=== PATIENT | female | born 2000 | race American Indian/Alaskan Native ===

== ENCOUNTER 2021-02-18 07:12 | Emergency (ER) | payer MEDICAID ==
--- NOTE | 2021-02-18 09:04 | Emergency Department Report ---
ED ENT HPI - General Chief complaint: Sore Throat Stated complaint: SORE THROAT,HEADACHE,EYE PAIN Time Seen by Provider: 02/18/21 09:02 Source: patient Mode of arrival: Ambulatory Limitations: No Limitations - History of Present Illness Initial comments: 20-year-old -[place] female resents to the emergency room complaining of sore throat, eyes hurt nasal congestion and headache. Patient is not vaccinated. Denies any nausea no vomiting no fever no chills no diarrhea or abdominal pain. Patient is taking nothing for her symptoms. Patient denies any past medical history. MD complaint: sore throat Onset/Timin -: days(s) Location: throat Severity scale (0 -10): 6 Quality: aching, sharp Consistency: intermittent Associated Symptoms: sore throat, other (Headache, eyes hurt). denies: fever, cough, gum swelling, toothache - Related Data Home Medications Medication Instructions Recorded Confirmed Last Taken No Known Home Medications [No 02/18/21 02/18/21 Unknown Reported Home Medications] Allergies Allergy/AdvReac Type Severity Reaction Status Date / Time No Known Allergies Allergy Verified 02/18/21 07:23 ED Dental HPI - General Chief complaint: Sore Throat Stated complaint: SORE THROAT,HEADACHE,EYE PAIN Time Seen by Provider: 02/18/21 09:02 Source: patient Mode of arrival: Ambulatory Limitations: No Limitations - Related Data Home Medications Medication Instructions Recorded Confirmed Last Taken No Known Home Medications [No 02/18/21 02/18/21 Unknown Reported Home Medications] Allergies Allergy/AdvReac Type Severity Reaction Status Date / Time No Known Allergies Allergy Verified 02/18/21 07:23 ED Review of Systems ROS: Stated complaint: SORE THROAT,HEADACHE,EYE PAIN Other details as noted in HPI Comment: All other systems reviewed and negative ED Past Medical Hx - Past Medical History Previous Medical History?: No - Surgical History Past Surgical History?: No - Medications Home Medications: Home Medications Medication Instructions Recorded Confirmed Last Taken Type No Known Home Medications [No 02/18/21 02/18/21 Unknown History Reported Home Medications] ED Physical Exam - General Limitations: No Limitations General appearance: alert, in no apparent distress - Head Head exam: Present: atraumatic, normocephalic - Eye Eye exam: Present: normal appearance - ENT ENT exam: Present: mucous membranes moist - Neck Neck exam: Present: normal inspection - Respiratory Respiratory exam: Present: normal lung sounds bilaterally. Absent: respiratory distress - Cardiovascular Cardiovascular Exam: Present: regular rate, normal rhythm. Absent: systolic murmur, diastolic murmur, rubs, gallop - GI/Abdominal GI/Abdominal exam: Present: soft, normal bowel sounds - Extremities Exam Extremities exam: Present: normal inspection - Back Exam Back exam: Present: normal inspection - Neurological Exam Neurological exam: Present: alert, oriented X3, normal gait - Expanded Neurological Exam Expanded Cranial nerves: EOM's Intact: Normal, Gag Reflex: Normal, Tongue Deviation: Normal, Nystagmus: Normal, Facial Sensation: Normal, Facial Palsy with Forehead Movement: Normal, Facial Palsy without Forehead Movement: Normal Cerebellar function: Finger to Nose: Normal, Heel to [place]: Normal, Romberg: Normal Upper motor neuron: Andre Neglect: Normal, Pronator Drift: Normal, Babinski Sign: Normal, Sensory Extinction: Normal Sensory exam: Upper Extremity Light Touch: Normal, Upper Extremity Pin Prick: Normal, Upper Extremity Temperature: Normal, UE 2 Point Discrimination: Normal, Lower Extremity Light Touch: Normal, Lower Extremity Pin Prick: Normal, Lower Extremity Temperature: Normal, LE 2 Point Discrimination: Normal Motor strength exam: RUE: 4, LUE: 4, RLE: 4, LLE: 4 - Psychiatric Psychiatric exam: Present: normal affect, normal mood - Skin Skin exam: Present: warm, dry, intact, normal color. Absent: rash ED Course Vital Signs 02/18/21 07:25 Temperature 98.4 F Pulse Rate 80 Respiratory 16 Rate Blood Pressure 118/74 [Left] O2 Sat by Pulse 100 Oximetry ED Medical Decision Making - Medical Decision Making 20-year-old -[place] female resents to the emergency room complaining of sore throat, eyes hurt nasal congestion and headache. Patient is not vaccinated. Denies any nausea no vomiting no fever no chills no diarrhea or abdominal pain. Patient is taking nothing for her symptoms. Patient denies any past medical history. Rapid strep has been ordered. Critical care attestation.: If time is entered above; I have spent that time in minutes in the direct care of this critically ill patient, excluding procedure time. ED Disposition Clinical Impression: Sore throat (viral) Disposition: HOME / SELF CARE / HOMELESS Is pt being admited?: No Does the pt Need Aspirin: No Condition: Stable Instructions: Sore Throat, [id number] Additional Instructions: Your strep test was negative I recommend ibuprofen or Tylenol for pain. Warm salt gargles. Follow-up with your primary care provider if any further concerns Referrals: PRIMARY CARE,MD [Primary Care Provider] - 3-5 Days Forms: Work/School Release Form(ED) Time of Disposition: 10:52
[2021-02-18 11:25] VITALS: BP 130/80
== END 2021-02-18 11:21 | disposition home or self-care (01) ==
LOC: ED 07:12
DX: J02.9 Acute pharyngitis, unspecified (principal)
CPT/HCPCS: 87116; 87430; 99283

== ENCOUNTER 2021-09-10 12:30 | Inpatient (IN) | payer MEDICAID ==
[2021-09-10] MEDS ORDERED: LACTATED RINGERS 500 ML IV ONE (12:49)
[2021-09-10 15:25] LABS: Bilirubin,Urine NEG (Negative); Blood,Urine SM (Negative); Color,Urine Yellow (Yellow); Mucus,Urine FEW /HPF; Protein,Urine <15 mg/dL mg/dL (Negative); Urobilinogen,Urine < 2.0 mg/dL (<2.0)
[2021-09-10] MEDS ORDERED: LACTATED RINGERS 1,000 ML ONE (15:54)
[2021-09-10] MEDS ORDERED: ACETAMINOPHEN 325 MG TAB PO PRN (17:25)
[2021-09-10] MEDS ORDERED: MINERAL OIL 30 ML ORAL LIQD PO PRN (17:25)
[2021-09-10] MEDS ORDERED: PROMETHAZINE 25 MG TAB PO PRN (17:25)
[2021-09-10] MEDS ORDERED: ONDANSETRON 4 MG/2 ML INJ IV PRN (17:25)
[2021-09-10] MEDS ORDERED: LACTATED RINGERS 1,000 ML IV SCH (17:30)
--- NOTE | 2021-09-10 17:37 | History and Physical Report ---
History of Present Illness Date of examination: 09/10/21 Chief complaint: left lower abd pain History of present illness: at 24.2wks by LMP per pt report. Pt c/o left side pain that started since 4am that is constant and sharp on the left side. It begun after having a BM. Pt states that she was seen by Urgent care earlier today and told she has kidney stones, hence she came to [facility]. Pt admits to movement, denies ctx, denies LOF or vag bleed or headache or N/V/F/C. care at [facility]. Past History Past Medical History: no pertinent history Past Surgical History: no surgical history Social history: no significant social history - Obstetrical History Expected Date of Delivery: 12/28/21 Actual Gestation: 24 Week(s) 4 Day(s) : 1 Number of Living Children: 0 Medications and Allergies Allergies Allergy/AdvReac Type Severity Reaction Status Date / Time No Known Allergies Allergy Verified 09/10/21 12:55 Home Medications Medication Instructions Recorded Confirmed Last Taken Type No Known Home Medications [No 02/18/21 02/18/21 Unknown History Reported Home Medications] Active Meds: Active Medications Acetaminophen (Acetaminophen 325 Mg Tab) 650 mg PO Q4H PRN PRN Reason: Pain, Mild (1-3) Lactated Ringer's (Lactated Ringers) 1,000 mls @ 150 mls/hr IV DIRECT JOHNNIE Ceftriaxone Sodium (Rocephin/Ns 1 Gm/50 Ml) 1 gm in 50 mls @ 100 mls/hr IV Q24H JOHNNIE; Protocol Mineral Oil (Mineral Oil 30 Ml Oral Liqd) 30 ml PO QHS PRN PRN Reason: Constipation Nalbuphine HCl (Nalbuphine 10 Mg/1 Ml Inj) 10 mg IV Q3H PRN PRN Reason: Pain, Moderate (4-6) Ondansetron HCl (Ondansetron 4 Mg/2 Ml Inj) 4 mg IV Q8H PRN PRN Reason: Nausea And Vomiting Promethazine HCl (Promethazine 25 Mg Tab) 25 mg PO Q6H PRN PRN Reason: Nausea And Vomiting Review of Systems All systems: negative (left side pain) - Physical Exam Breasts: Positive: deferred Cardiovascular: Regular rate Lungs: Positive: Normal air movement Abdomen: Positive: soft Genitourinary (Female): Positive: normal external genitalia Vulva: both: normal Vagina: Positive: normal moisture Uterus: Positive: enlarged (non-tender gravid at 22cm measurement) Extremities: Positive: other (left CVAT noted) - Obstetrical FHR: category 1 Uterine Contraction Monitor Mode: External Cervical Dilatation: 0 Cervical Effacement Percentage: 0 station: -4 Uterine Contraction Pattern: Absent Results Result Diagrams: 09/10/21 20:14 09/10/21 20:14 All other labs normal. Assessment and Plan with hydronephrosis and kidney stones symptomatic; Left CVAT on exam 1. Admit and give IVF hydration and ceftriaxone abx 2. Will send urine culture 3. Consult urology for possible stent if needed 4. IV nubain prn pain 5. Colace bid for constipation 6. Routine care, request records and u/s for Anatomy and dates plan of care discussed with pt
--- NOTE | 2021-09-10 17:39 | Ultrasound Report ---
ULTRASOUND RENAL INDICATION / CLINICAL INFORMATION: at 24.2wks. Left flank pain. COMPARISON: None available. FINDINGS: RIGHT KIDNEY: Length = 2.7 cm. - Echogenicity: Normal. - Cortical Thickness: Normal. - Hydronephrosis: Moderate. - Cyst / Mass: None. - Stones: 4 mm stone at the midportion. LEFT KIDNEY: Length = 1.1 cm. - Echogenicity: Normal. - Cortical Thickness: Normal. - Hydronephrosis: Moderate. - Cyst / Mass: None. - Stones: 3 mm stone at the midportion URINARY BLADDER: No significant abnormality. FREE FLUID: None. ADDITIONAL FINDINGS: None. IMPRESSION: 1. Bilateral moderate hydronephrosis without obstructing ureteral stone identified. There are bilater al renal stones. The bilateral hydronephrosis may be due to gravid uterus versus distal obstructing s tones. Recommend clinical correlation. Signer Name: Louie Fragoso MD Signed: 09/10/2021 5:35 PM Workstation Name: [id number]
[2021-09-10] MEDS: NalbUPHINE 10 MG/1 ML INJ IV PRN (18:37)
[2021-09-10] MEDS: SODIUM CHLORIDE 0.9% 1000 ML 1,000 ML IV SCH (19:56)
[2021-09-10] MEDS: cefTRIAXone/NS 1 GM/50 ML 1 GM/50 ML BAG IV SCH (20:30)
[2021-09-10 21:17] LABS: Hematocrit 32.3 % (30.3-42.9); Hemoglobin 10.6 gm/dl (10.1-14.3); Mean Corpuscular HGB Conc 33 % (30-34); Mean Corpuscular Volume 96 fl (79-97); Platelet Count 193 K/mm3 (140-440); Red Blood Count 3.38 M/mm3 (3.65-5.03); Red Cell Distribution Width 14.8 % (13.2-15.2)
[2021-09-10 21:38] LABS: Alanine Aminotransferase 19 units/L (7-56); Albumin 3.8 g/dL (3.9-5); BUN/Creatinine Ratio 9; Blood Urea Nitrogen 7 mg/dL (7-17); Calcium 9.4 mg/dL (8.4-10.2); Hemolysis Index 3
[2021-09-11] MEDS: NalbUPHINE 10 MG/1 ML INJ IV PRN ×2 (03:32→07:39)
[2021-09-11] MEDS: SODIUM CHLORIDE 0.9% 1000 ML 1,000 ML IV SCH ×2 (03:33→09:31)
[2021-09-11] MEDS: ACETAMINOPHEN W/CODEINE 300-30 MG TAB PO PRN ×3 (10:51→20:20)
--- NOTE | 2021-09-11 10:57 | Progress Note ---
Assessment and Plan A IUP@ 24 3/7 weeks Nephrolithiasis -Bilateral non -obstructing Poor pain control OB US pending P Will switch to po pain meds OB US If pain control on po meds will d/c home F/u with urology as an outpatient in 1 week Return to OB office in 1 week. Subjective - Subjective Date of service: 09/11/21 Principal diagnosis: Nephrolithiasis Patient reports: movement normal, other (Flank Pain. Worse with urination. Poor pain control. Pain relieved x 1hour with pain meds. Pain 12/10 ) Objective - Vital Signs Vital Signs: Vital Signs - 12hr 09/10/21 09/10/21 09/10/21 22:51 22:56 23:01 Temperature Pulse Rate 87 88 85 Respiratory Rate Blood Pressure Blood Pressure [Left] O2 Sat by Pulse 97 97 97 Oximetry O2 Sat by Pulse Oximetry [ Anterior Bilateral Throughout] 09/10/21 09/10/21 09/10/21 23:06 23:11 23:16 Temperature Pulse Rate 83 86 83 Respiratory Rate Blood Pressure Blood Pressure [Left] O2 Sat by Pulse 97 97 97 Oximetry O2 Sat by Pulse Oximetry [ Anterior Bilateral Throughout] 09/10/21 09/10/21 09/10/21 23:21 23:26 23:31 Temperature Pulse Rate 86 81 84 Respiratory Rate Blood Pressure Blood Pressure [Left] O2 Sat by Pulse 97 97 97 Oximetry O2 Sat by Pulse Oximetry [ Anterior Bilateral Throughout] 09/10/21 09/10/21 09/10/21 23:36 23:41 23:46 Temperature Pulse Rate 82 87 88 Respiratory Rate Blood Pressure Blood Pressure [Left] O2 Sat by Pulse 97 97 97 Oximetry O2 Sat by Pulse Oximetry [ Anterior Bilateral Throughout] 09/10/21 09/10/21 09/11/21 23:51 23:56 00:01 Temperature Pulse Rate 92 H 79 79 Respiratory Rate Blood Pressure Blood Pressure [Left] O2 Sat by Pulse 98 97 98 Oximetry O2 Sat by Pulse Oximetry [ Anterior Bilateral Throughout] 09/11/21 09/11/21 09/11/21 00:06 00:11 00:16 Temperature Pulse Rate 96 H 90 91 H Respiratory Rate Blood Pressure Blood Pressure [Left] O2 Sat by Pulse 98 97 97 Oximetry O2 Sat by Pulse Oximetry [ Anterior Bilateral Throughout] 09/11/21 09/11/21 09/11/21 00:21 00:26 03:31 Temperature Pulse Rate 89 87 88 Respiratory Rate Blood Pressure 107/57 Blood Pressure [Left] O2 Sat by Pulse 98 97 Oximetry O2 Sat by Pulse Oximetry [ Anterior Bilateral Throughout] 09/11/21 09/11/21 09/11/21 03:32 03:34 04:32 Temperature 97.9 F Pulse Rate Respiratory 18 18 Rate Blood Pressure Blood Pressure [Left] O2 Sat by Pulse Oximetry O2 Sat by Pulse Oximetry [ Anterior Bilateral Throughout] 09/11/21 09/11/21 09/11/21 07:01 07:04 07:06 Temperature 98.2 F Pulse Rate 86 84 88 Respiratory 12 Rate Blood Pressure 104/60 Blood Pressure 104/60 [Left] O2 Sat by Pulse 98 100 99 Oximetry O2 Sat by Pulse 99 Oximetry [ Anterior Bilateral Throughout] 09/11/21 09/11/21 09/11/21 07:11 07:16 07:21 Temperature Pulse Rate 92 H 93 H 79 Respiratory Rate Blood Pressure Blood Pressure [Left] O2 Sat by Pulse 99 98 98 Oximetry O2 Sat by Pulse Oximetry [ Anterior Bilateral Throughout] 09/11/21 09/11/21 09/11/21 07:26 07:31 07:36 Temperature Pulse Rate 86 83 86 Respiratory Rate Blood Pressure Blood Pressure [Left] O2 Sat by Pulse 97 99 100 Oximetry O2 Sat by Pulse Oximetry [ Anterior Bilateral Throughout] 09/11/21 09/11/21 09/11/21 07:39 07:41 07:46 Temperature Pulse Rate 92 H 93 H Respiratory 12 Rate Blood Pressure Blood Pressure [Left] O2 Sat by Pulse 98 97 Oximetry O2 Sat by Pulse Oximetry [ Anterior Bilateral Throughout] 09/11/21 09/11/21 09/11/21 07:51 07:56 08:00 Temperature Pulse Rate 84 88 89 Respiratory Rate Blood Pressure Blood Pressure [Left] O2 Sat by Pulse 95 95 94 Oximetry O2 Sat by Pulse Oximetry [ Anterior Bilateral Throughout] 09/11/21 09/11/21 09/11/21 08:01 08:06 08:11 Temperature Pulse Rate 91 H 92 H 90 Respiratory Rate Blood Pressure Blood Pressure [Left] O2 Sat by Pulse 97 96 95 Oximetry O2 Sat by Pulse Oximetry [ Anterior Bilateral Throughout] 09/11/21 09/11/21 09/11/21 08:26 08:31 08:36 Temperature Pulse Rate 92 H 89 90 Respiratory Rate Blood Pressure Blood Pressure [Left] O2 Sat by Pulse 98 95 95 Oximetry O2 Sat by Pulse Oximetry [ Anterior Bilateral Throughout] 09/11/21 09/11/21 09/11/21 08:41 08:46 08:51 Temperature Pulse Rate 88 85 87 Respiratory Rate Blood Pressure Blood Pressure [Left] O2 Sat by Pulse 95 95 96 Oximetry O2 Sat by Pulse Oximetry [ Anterior Bilateral Throughout] 09/11/21 09/11/21 09/11/21 08:56 09:01 09:06 Temperature Pulse Rate 93 H 85 76 Respiratory Rate Blood Pressure Blood Pressure [Left] O2 Sat by Pulse 95 95 97 Oximetry O2 Sat by Pulse Oximetry [ Anterior Bilateral Throughout] 09/11/21 09/11/21 09/11/21 09:11 09:16 09:21 Temperature Pulse Rate 110 H 79 82 Respiratory Rate Blood Pressure Blood Pressure [Left] O2 Sat by Pulse 97 97 97 Oximetry O2 Sat by Pulse Oximetry [ Anterior Bilateral Throughout] 09/11/21 09/11/21 09/11/21 09:26 09:31 09:36 Temperature Pulse Rate 86 96 H 98 H Respiratory Rate Blood Pressure Blood Pressure [Left] O2 Sat by Pulse 96 98 100 Oximetry O2 Sat by Pulse Oximetry [ Anterior Bilateral Throughout] 09/11/21 09/11/21 09/11/21 09:41 09:46 09:51 Temperature Pulse Rate 96 H 77 83 Respiratory Rate Blood Pressure Blood Pressure [Left] O2 Sat by Pulse 98 97 99 Oximetry O2 Sat by Pulse Oximetry [ Anterior Bilateral Throughout] 09/11/21 09/11/21 09/11/21 09:56 10:01 10:06 Temperature Pulse Rate 88 90 86 Respiratory Rate Blood Pressure Blood Pressure [Left] O2 Sat by Pulse 98 99 100 Oximetry O2 Sat by Pulse Oximetry [ Anterior Bilateral Throughout] 09/11/21 09/11/21 10:11 10:16 Temperature Pulse Rate 89 87 Respiratory Rate Blood Pressure Blood Pressure [Left] O2 Sat by Pulse 100 99 Oximetry O2 Sat by Pulse Oximetry [ Anterior Bilateral Throughout] - Exam Breasts: deferred Abdomen: Present: normal appearance, soft, other (No CVA tenderness ) Uterus: Present: normal, fundal height above umbilicus FHR: auscultation normal (135) Uterine Contraction Monitor Mode: External - Labs Labs: Abnormal Labs 09/10/21 09/10/21 20:14 20:14 WBC 13.1 H RBC 3.38 L Albumin 3.8 L Laboratory Results - last 24 hr 09/10/21 09/10/21 09/10/21 15:06 20:00 20:14 WBC 13.1 H RBC 3.38 L Hgb 10.6 Hct 32.3 MCV 96 MCH 32 MCHC 33 RDW 14.8 Plt Count 193 Sodium Potassium Chloride Carbon Dioxide Anion Gap BUN Creatinine Estimated GFR BUN/Creatinine Ratio Glucose Calcium Total Bilirubin AST ALT Alkaline Phosphatase Total Protein Albumin Albumin/Globulin Ratio Urine Color Yellow Urine Turbidity Clear Urine pH 7.0 Ur Specific [place] 1.010 Urine Protein <15 mg/dl Urine Glucose (UA) Neg Urine Ketones Neg Urine Blood Sm Urine Nitrite Neg Urine Bilirubin Neg Urine Urobilinogen < 2.0 Ur Leukocyte Esterase Neg Urine WBC (Auto) 3.0 Urine RBC (Auto) 5.0 U Epithel Cells (Auto) 5.0 Urine Mucus Few SARS-CoV-2 (PCR) Blood Type O POSITIVE Antibody Screen Negative 09/10/21 09/11/21 20:14 09:11 WBC RBC Hgb Hct MCV MCH MCHC RDW Plt Count Sodium 137 Potassium 3.7 Chloride 101.9 Carbon Dioxide 22 Anion Gap 17 BUN 7 Creatinine 0.8 Estimated GFR > 60 BUN/Creatinine Ratio 9 Glucose 68 Calcium 9.4 Total Bilirubin 0.50 AST 27 ALT 19 Alkaline Phosphatase 76 Total Protein 6.3 Albumin 3.8 L Albumin/Globulin Ratio 1.5 Urine Color Urine Turbidity Urine pH Ur Specific [place] Urine Protein Urine Glucose (UA) Urine Ketones Urine Blood Urine Nitrite Urine Bilirubin Urine Urobilinogen Ur Leukocyte Esterase Urine WBC (Auto) Urine RBC (Auto) U Epithel Cells (Auto) Urine Mucus SARS-CoV-2 (PCR) Negative Blood Type Antibody Screen
[2021-09-11] MEDS ORDERED: oxyCODONE /ACETAMINOPHEN 5-325MG TAB PO PRN ×2 (11:20→17:31)
--- NOTE | 2021-09-11 13:29 | Ultrasound Report ---
ULTRASOUND OBSTETRIC LIMITED INDICATION / CLINICAL INFORMATION: Placenta Evaluation. Clinical Gestational Age (GA) in weeks, days: 24 weeks 4 days TECHNIQUE: Transabdominal. COMPARISON: None available. FINDINGS: HEART RATE (beats per minute): 145 BPM PLACENTA: Posterior/ left lateral grade 1. No evidence of abruption. There is a placental mccarthy measur ing 3.3 cm. PRESENTATION: Cephalic. ADDITIONAL FINDINGS: None. IMPRESSION: 1. No evidence of placental abruption. 2. 3.3 cm placental mccarthy. Scribed by: Samira Wu RDMS, RVT, GAMALIEL Scribed: 09/11/2021 12:19 PM I have reviewed the images, agree with this report, and edited this report as needed. Signer Name: Julian Chirinos MD Signed: 09/11/2021 1:24 PM Workstation Name: [id number]
--- NOTE | 2021-09-11 15:36 | Progress Note ---
Assessment and Plan A Poor pain control Previously refuse percocet. P D/w pt. percocet and effects on fetus. pt. agrees to use percocet. Switch Tylenol#3 to Percocet Subjective - Subjective Date of service: 09/11/21 Principal diagnosis: Nephrolithiasis Patient reports: new complaints (Pt. with poor pain control using tylenol #3. ), movement normal, other (Flank Pain. Worse with urination. Pain relieve with pain meds x 1 hour. ) Objective - Vital Signs Vital Signs: Vital Signs - 12hr 09/11/21 09/11/21 09/11/21 03:31 03:32 03:34 Temperature 97.9 F Pulse Rate 88 Respiratory 18 Rate Blood Pressure 107/57 Blood Pressure [Left] O2 Sat by Pulse Oximetry O2 Sat by Pulse Oximetry [ Anterior Bilateral Throughout] 09/11/21 09/11/21 09/11/21 04:32 07:01 07:04 Temperature 98.2 F Pulse Rate 86 84 Respiratory 18 12 Rate Blood Pressure 104/60 Blood Pressure 104/60 [Left] O2 Sat by Pulse 98 100 Oximetry O2 Sat by Pulse 99 Oximetry [ Anterior Bilateral Throughout] 09/11/21 09/11/21 09/11/21 07:06 07:11 07:16 Temperature Pulse Rate 88 92 H 93 H Respiratory Rate Blood Pressure Blood Pressure [Left] O2 Sat by Pulse 99 99 98 Oximetry O2 Sat by Pulse Oximetry [ Anterior Bilateral Throughout] 09/11/21 09/11/21 09/11/21 07:21 07:26 07:31 Temperature Pulse Rate 79 86 83 Respiratory Rate Blood Pressure Blood Pressure [Left] O2 Sat by Pulse 98 97 99 Oximetry O2 Sat by Pulse Oximetry [ Anterior Bilateral Throughout] 09/11/21 09/11/21 09/11/21 07:36 07:39 07:41 Temperature Pulse Rate 86 92 H Respiratory 12 Rate Blood Pressure Blood Pressure [Left] O2 Sat by Pulse 100 98 Oximetry O2 Sat by Pulse Oximetry [ Anterior Bilateral Throughout] 09/11/21 09/11/21 09/11/21 07:46 07:51 07:56 Temperature Pulse Rate 93 H 84 88 Respiratory Rate Blood Pressure Blood Pressure [Left] O2 Sat by Pulse 97 95 95 Oximetry O2 Sat by Pulse Oximetry [ Anterior Bilateral Throughout] 09/11/21 09/11/21 09/11/21 08:00 08:01 08:06 Temperature Pulse Rate 89 91 H 92 H Respiratory Rate Blood Pressure Blood Pressure [Left] O2 Sat by Pulse 94 97 96 Oximetry O2 Sat by Pulse Oximetry [ Anterior Bilateral Throughout] 09/11/21 09/11/21 09/11/21 08:11 08:26 08:31 Temperature Pulse Rate 90 92 H 89 Respiratory Rate Blood Pressure Blood Pressure [Left] O2 Sat by Pulse 95 98 95 Oximetry O2 Sat by Pulse Oximetry [ Anterior Bilateral Throughout] 09/11/21 09/11/21 09/11/21 08:36 08:41 08:46 Temperature Pulse Rate 90 88 85 Respiratory Rate Blood Pressure Blood Pressure [Left] O2 Sat by Pulse 95 95 95 Oximetry O2 Sat by Pulse Oximetry [ Anterior Bilateral Throughout] 09/11/21 09/11/21 09/11/21 08:51 08:56 09:01 Temperature Pulse Rate 87 93 H 85 Respiratory Rate Blood Pressure Blood Pressure [Left] O2 Sat by Pulse 96 95 95 Oximetry O2 Sat by Pulse Oximetry [ Anterior Bilateral Throughout] 09/11/21 09/11/21 09/11/21 09:06 09:11 09:16 Temperature Pulse Rate 76 110 H 79 Respiratory Rate Blood Pressure Blood Pressure [Left] O2 Sat by Pulse 97 97 97 Oximetry O2 Sat by Pulse Oximetry [ Anterior Bilateral Throughout] 09/11/21 09/11/21 09/11/21 09:21 09:26 09:31 Temperature Pulse Rate 82 86 96 H Respiratory Rate Blood Pressure Blood Pressure [Left] O2 Sat by Pulse 97 96 98 Oximetry O2 Sat by Pulse Oximetry [ Anterior Bilateral Throughout] 09/11/21 09/11/21 09/11/21 09:36 09:41 09:46 Temperature Pulse Rate 98 H 96 H 77 Respiratory Rate Blood Pressure Blood Pressure [Left] O2 Sat by Pulse 100 98 97 Oximetry O2 Sat by Pulse Oximetry [ Anterior Bilateral Throughout] 09/11/21 09/11/21 09/11/21 09:51 09:56 10:01 Temperature Pulse Rate 83 88 90 Respiratory Rate Blood Pressure Blood Pressure [Left] O2 Sat by Pulse 99 98 99 Oximetry O2 Sat by Pulse Oximetry [ Anterior Bilateral Throughout] 09/11/21 09/11/21 09/11/21 10:06 10:11 10:16 Temperature Pulse Rate 86 89 87 Respiratory Rate Blood Pressure Blood Pressure [Left] O2 Sat by Pulse 100 100 99 Oximetry O2 Sat by Pulse Oximetry [ Anterior Bilateral Throughout] 09/11/21 09/11/21 09/11/21 10:51 10:53 11:02 Temperature 97.6 F Pulse Rate 90 41 L Respiratory 14 Rate Blood Pressure 109/55 Blood Pressure [Left] O2 Sat by Pulse 66 L Oximetry O2 Sat by Pulse Oximetry [ Anterior Bilateral Throughout] 09/11/21 09/11/21 09/11/21 11:07 14:49 14:52 Temperature 97.6 F Pulse Rate 66 125 H Respiratory 14 Rate Blood Pressure 126/80 Blood Pressure [Left] O2 Sat by Pulse 63 L Oximetry O2 Sat by Pulse Oximetry [ Anterior Bilateral Throughout] - Labs Labs: Abnormal Labs 09/10/21 09/10/21 20:14 20:14 WBC 13.1 H RBC 3.38 L Albumin 3.8 L Laboratory Results - last 24 hr 09/10/21 09/10/21 09/10/21 15:06 20:00 20:14 WBC 13.1 H RBC 3.38 L Hgb 10.6 Hct 32.3 MCV 96 MCH 32 MCHC 33 RDW 14.8 Plt Count 193 Sodium Potassium Chloride Carbon Dioxide Anion Gap BUN Creatinine Estimated GFR BUN/Creatinine Ratio Glucose Calcium Total Bilirubin AST ALT Alkaline Phosphatase Total Protein Albumin Albumin/Globulin Ratio Urine Color Yellow Urine Turbidity Clear Urine pH 7.0 Ur Specific [place] 1.010 Urine Protein <15 mg/dl Urine Glucose (UA) Neg Urine Ketones Neg Urine Blood Sm Urine Nitrite Neg Urine Urobilinogen < 2.0 Ur Leukocyte Esterase Neg Urine WBC (Auto) 3.0 Urine Mucus Few SARS-CoV-2 (PCR) Blood Type O POSITIVE Antibody Screen Negative 09/10/21 09/11/21 20:14 09:11 WBC RBC Hgb Hct MCV MCH MCHC RDW Plt Count Sodium 137 Potassium 3.7 Chloride 101.9 Carbon Dioxide 22 Anion Gap 17 BUN 7 Creatinine 0.8 Estimated GFR > 60 BUN/Creatinine Ratio 9 Glucose 68 Calcium 9.4 Total Bilirubin 0.50 AST 27 ALT 19 Alkaline Phosphatase 76 Total Protein 6.3 Albumin 3.8 L Albumin/Globulin Ratio 1.5 Urine Color Urine Turbidity Urine pH Ur Specific [place] Urine Protein Urine Glucose (UA) Urine Ketones Urine Blood Urine Nitrite Urine Urobilinogen Ur Leukocyte Esterase Urine WBC (Auto) Urine Mucus SARS-CoV-2 (PCR) Negative Blood Type Antibody Screen
[2021-09-11] MEDS: cefTRIAXone/NS 1 GM/50 ML 1 GM/50 ML BAG IV SCH (20:51)
[2021-09-11] MEDS: MORPHINE 2 MG/1 ML INJ IV PRN (23:08)
[2021-09-12] MEDS: MORPHINE 2 MG/1 ML INJ IV PRN (03:41)
--- NOTE | 2021-09-12 10:11 | Progress Note ---
Assessment and Plan at 24.6wks with worsening left sided abd pain, afebrile with nausea 1. Repeat u/s and placental mccarthy not increased 2. consult urology with Dr. García for stent placement with non-obstructive kidney stones 3. will treat constipation, with MOM 30cc PO now and continue colace BID 4. Will give morphine med after pt seen by urology 5. Will also consult [facility], high worker 6. Will repeat CBC, CMP labs 7. Urine culture neg x24hrs and will get final after 24hrs and decide whether pt still needs to be on rocephin daily 8. Routine care with [facility], for 1hrgtt prior to 28wks as out pt Plan of care discussed. All questions encouraged and answered. Subjective Date of service: 09/12/21 Principal diagnosis: HD#3 with bilat kidney stones, worsening left abd pain Interval history: pt c/o pain that is worsening with nausea and vomiting x1 yesterday. pt received percocet and same inadequate and she desires the morphine that worked earlier this morning. pt admits to movement, denies ctx, LOF or vag bleed. records showed vag bleed at 16wks and placenta mccarthy noted on u/s done yesterday. Denies fever or chills. pt states that her last BM was 2 days ago. pt has tolerated regular diet Objective - Constitutional Vitals: Vital Signs - 12hr 09/11/21 09/11/21 09/11/21 23:08 23:10 23:38 Pulse Rate 25 L Respiratory 18 18 Rate Blood Pressure O2 Sat by Pulse 72 L Oximetry 09/12/21 09/12/21 09/12/21 03:41 04:11 08:09 Pulse Rate 88 Respiratory 18 18 Rate Blood Pressure 104/52 O2 Sat by Pulse 83 L Oximetry General appearance: Present: mild distress - Neck Neck: normal ROM - Respiratory Respiratory effort: normal - Breasts Breasts: deferred - Cardiovascular Rhythm: regular Extremities: No edema - Gastrointestinal General gastrointestinal: Present: tender (left lateral upper and lower quad) - Genitourinary Female genitourinary: deferred - Integumentary Integumentary: warm, dry - Neurologic Neurologic: moves all extremities - Psychiatric Psychiatric: cooperative - Labs CBC & Chem 7: 09/10/21 20:14 09/10/21 20:14 Medications & Allergies - Medications Allergies/Adverse Reactions: Allergies No Known Allergies Allergy (Verified 09/10/21 12:55) Home Medications: Home Medications Medication Instructions Recorded Confirmed Last Taken Type No Known Home Medications [No 02/18/21 02/18/21 Unknown History Reported Home Medications] Active Medications: Generic Name Dose Route Start Last Admin Trade Name Freq PRN Reason Stop Dose Admin Acetaminophen 650 mg 09/10/21 17:25 09/10/21 21:08 Acetaminophen 325 Mg Tab PO 650 mg Q4H PRN Administration Pain, Mild (1-3) Acetaminophen/Codeine Phosphate 1 tab 09/11/21 11:00 09/11/21 20:20 Acetaminophen W/Codeine 300-30 Mg Tab PO 1 tab Q4H PRN Administration Pain, Moderate (4-6) Ceftriaxone Sodium 1 gm in 50 mls @ 100 mls/hr 09/10/21 18:00 09/11/21 20:51 Rocephin/Ns 1 Gm/50 Ml IV 100 mls/hr Q24H JOHNNIE Administration Protocol Sodium Chloride 1,000 mls @ 150 mls/hr 09/10/21 18:15 09/11/21 09:31 Nacl 0.9% 1000 Ml IV 150 mls/hr DIRECT JOHNNIE Administration Mineral Oil 30 ml 09/10/21 17:25 Mineral Oil 30 Ml Oral Liqd PO QHS PRN Constipation Morphine Sulfate 2 mg 09/11/21 20:31 09/12/21 03:41 Morphine 2 Mg/1 Ml Inj IV 2 mg Q4H PRN Administration Pain, Moderate (4-6) Ondansetron HCl 4 mg 09/10/21 17:25 09/11/21 17:44 Ondansetron 4 Mg/2 Ml Inj IV 4 mg Q8H PRN Administration Nausea And Vomiting Oxycodone/Acetaminophen 1 tab 09/11/21 17:31 09/11/21 18:09 Oxycodone /Acetaminophen 5-325mg Tab PO 1 tab Q4H PRN Administration Pain, Moderate (4-6) Promethazine HCl 25 mg 09/10/21 17:25 Promethazine 25 Mg Tab PO Q6H PRN Nausea And Vomiting
[2021-09-12] MEDS ORDERED: DOCUSATE SODIUM 100 MG CAP PO SCH (11:00)
[2021-09-12] MEDS ORDERED: MAGNESIUM HYDROXIDE (MOM) ORAL LIQD UDC PO PRN (11:00)
--- NOTE | 2021-09-12 11:02 | Ultrasound Report ---
ULTRASOUND OBSTETRIC LIMITED INDICATION / CLINICAL INFORMATION: worsen left side ant lower abd pain; plac mccarthy siz. COMPARISON: None available. FINDINGS: A single live intrauterine is seen in cephalic presentation with a heart rate of 145 bpm. T he placenta is located along the fundus/maternal left lateral and is grade 1. A placental mccarthy is aga in seen measuring up to 3.4 cm, previously 3.0 cm. No other significant abnormality. IMPRESSION: Single live intrauterine as above without acute findings. Signer Name: Delroy Bean MD Signed: 09/12/2021 10:57 AM Workstation Name: [id number]
[2021-09-12 11:39] LABS: Alanine Aminotransferase 18 units/L (7-56); Albumin 3.8 g/dL (3.9-5); BUN/Creatinine Ratio 7; Blood Urea Nitrogen 6 mg/dL (7-17); Calcium 9.5 mg/dL (8.4-10.2); Hemolysis Index 8
[2021-09-12 11:40] LABS: Basophils # (Auto) 0.1 K/mm3 (0.0-0.1); Basophils % (Auto) 0.7 % (0.0-1.8); Eosinophils % (Auto) 0.2 % (0.0-4.3); Hematocrit 35.2 % (30.3-42.9); Hemoglobin 11.4 gm/dl (10.1-14.3); Lymphocytes # (Auto) 1.1 K/mm3 (1.2-5.4); Mean Corpuscular HGB Conc 32 % (30-34); Mean Corpuscular Volume 96 fl (79-97); Monocytes # (Auto) 1.2 K/mm3 (0.0-0.8); Platelet Count 190 K/mm3 (140-440); Red Blood Count 3.68 M/mm3 (3.65-5.03)
[2021-09-12] MEDS: SODIUM CHLORIDE 0.9% 1000 ML 1,000 ML IV SCH (11:48)
[2021-09-12] MEDS ORDERED: SODIUM CHLORIDE 0.9% 1000 ML 1,000 ML IV SCH (12:00)
--- NOTE | 2021-09-12 12:40 | Consultation ---
History of Present Illness - Reason for Consult Consult date: 09/12/21 - History of Present Illness NEW TO OUR SERVICE records later seen had EDC 12/27/21, gest age was 24.4wks noted in OB Pt c/o left side pain that started since 4am prior to admission that is constant and sharp on the left side. It begun after having a BM. Pt states that she was seen by Urgent care earlier today and told she has kidney stones, hence she came to [facility] renal us--bilat hydronephrosis, rt 4mm renal stone, left 3mm renal stone abd---iup a/p bilat hyrdo with pain ----stone vs pregnacy info given recommend cysto stents vs nephrostomy tubes pt to ponder npo after mn Past History Social history: no significant social history Medications and Allergies Allergies Allergy/AdvReac Type Severity Reaction Status Date / Time No Known Allergies Allergy Verified 09/10/21 12:55 Home Medications Medication Instructions Recorded Confirmed Last Taken Type No Known Home Medications [No 02/18/21 02/18/21 Unknown History Reported Home Medications] Active Meds: Active Medications Acetaminophen (Acetaminophen 325 Mg Tab) 650 mg PO Q4H PRN PRN Reason: Pain, Mild (1-3) Last Admin: 09/10/21 21:08 Dose: 650 mg Acetaminophen/Codeine Phosphate (Acetaminophen W/Codeine 300-30 Mg Tab) 1 tab PO Q4H PRN PRN Reason: Pain, Moderate (4-6) Last Admin: 09/11/21 20:20 Dose: 1 tab Docusate Sodium (Docusate Sodium 100 Mg Cap) 100 mg PO BID JOHNNIE Last Admin: 09/12/21 10:55 Dose: 100 mg Ceftriaxone Sodium (Rocephin/Ns 1 Gm/50 Ml) 1 gm in 50 mls @ 100 mls/hr IV Q24H JOHNNIE; Protocol Last Admin: 09/11/21 20:51 Dose: 100 mls/hr Sodium Chloride (Nacl 0.9% 1000 Ml) 1,000 mls @ 150 mls/hr IV DIRECT JOHNNIE Magnesium Hydroxide (Magnesium Hydroxide (Mom) Oral Liqd Udc) 30 ml PO BID PRN PRN Reason: Constipation Last Admin: 09/12/21 10:56 Dose: 30 ml Morphine Sulfate (Morphine 2 Mg/1 Ml Inj) 2 mg IV Q4H PRN PRN Reason: Pain, Moderate (4-6) Last Admin: 09/12/21 03:41 Dose: 2 mg Ondansetron HCl (Ondansetron 4 Mg/2 Ml Inj) 4 mg IV Q8H PRN PRN Reason: Nausea And Vomiting Last Admin: 09/11/21 17:44 Dose: 4 mg Oxycodone/Acetaminophen (Oxycodone /Acetaminophen 5-325mg Tab) 1 tab PO Q4H PRN PRN Reason: Pain, Moderate (4-6) Last Admin: 09/11/21 18:09 Dose: 1 tab Promethazine HCl (Promethazine 25 Mg Tab) 25 mg PO Q6H PRN PRN Reason: Nausea And Vomiting Exam - Constitutional Vitals: Temp Pulse Resp BP Pulse Ox 98.1 F 95 H 18 104/52 99 09/12/21 08:09 09/12/21 08:09 09/12/21 08:09 09/12/21 08:09 09/12/21 08:09 Results - Labs CBC & Chem 7: 09/12/21 10:44 09/12/21 10:44 Labs: Abnormal lab results 09/12/21 09/12/21 Range/Units 10:44 10:44 WBC 11.3 H (4.5-11.0) K/mm3 Lymph % (Auto) 10.0 L (13.4-35.0) % [place] % (Auto) 11.0 H (0.0-7.3) % Lymph # (Auto) 1.1 L (1.2-5.4) K/mm3 [place] # (Auto) 1.2 H (0.0-0.8) K/mm3 Seg Neutrophils % 78.1 H (40.0-70.0) % Seg Neutrophils # 8.8 H (1.8-7.7) K/mm3 Sodium 133 L (137-145) mmol/L Carbon Dioxide 20 L (22-30) mmol/L BUN 6 L (7-17) mg/dL Albumin 3.8 L (3.9-5) g/dL
--- NOTE | 2021-09-12 16:44 | Consultation ---
History of Present Illness Consult date: 09/12/21 Requesting physician: SURY MCCRACKEN History of present illness: Ms. Robertson is a 21y/o [id number] 12/28/21 EGA 24 6/ weeks Presented Saturday around noon with Left Flank Pain and diagnosis Pt states that she was seen by Urgent and told she has kidney stones, then she came to [facility] renal us--bilat hydronephrosis, rt 4mm renal stone, left 3mm renal stone bilat hyrdo with pain ----stone vs pregnacy Urology evaluated patient recommend cysto stents vs nephrostomy tubes Patient was to make a decision npo after mn Since seen by neph - patient states she may have passed stone - sent to lab Patient feeling better Pain resolved now " 0 was 03/12 " No medical ds No surg No STD NKA Past History Past Medical History: no pertinent history Past Surgical History: no surgical history - Obstetrical History : 1 Medications and Allergies Allergies Allergy/AdvReac Type Severity Reaction Status Date / Time No Known Allergies Allergy Verified 09/10/21 12:55 Home Medications Medication Instructions Recorded Confirmed Last Taken Type No Known Home Medications [No 02/18/21 02/18/21 Unknown History Reported Home Medications] Active Meds: Active Medications Acetaminophen (Acetaminophen 325 Mg Tab) 650 mg PO Q4H PRN PRN Reason: Pain, Mild (1-3) Last Admin: 09/10/21 21:08 Dose: 650 mg Acetaminophen/Codeine Phosphate (Acetaminophen W/Codeine 300-30 Mg Tab) 1 tab PO Q4H PRN PRN Reason: Pain, Moderate (4-6) Last Admin: 09/11/21 20:20 Dose: 1 tab Docusate Sodium (Docusate Sodium 100 Mg Cap) 100 mg PO BID JOHNNIE Last Admin: 09/12/21 10:55 Dose: 100 mg Ceftriaxone Sodium (Rocephin/Ns 1 Gm/50 Ml) 1 gm in 50 mls @ 100 mls/hr IV Q24H JOHNNIE; Protocol Last Admin: 09/11/21 20:51 Dose: 100 mls/hr Sodium Chloride (Nacl 0.9% 1000 Ml) 1,000 mls @ 150 mls/hr IV DIRECT JOHNNIE Magnesium Hydroxide (Magnesium Hydroxide (Mom) Oral Liqd Udc) 30 ml PO BID PRN PRN Reason: Constipation Last Admin: 09/12/21 10:56 Dose: 30 ml Morphine Sulfate (Morphine 2 Mg/1 Ml Inj) 2 mg IV Q4H PRN PRN Reason: Pain, Moderate (4-6) Last Admin: 09/12/21 03:41 Dose: 2 mg Ondansetron HCl (Ondansetron 4 Mg/2 Ml Inj) 4 mg IV Q8H PRN PRN Reason: Nausea And Vomiting Last Admin: 09/11/21 17:44 Dose: 4 mg Oxycodone/Acetaminophen (Oxycodone /Acetaminophen 5-325mg Tab) 1 tab PO Q4H PRN PRN Reason: Pain, Moderate (4-6) Last Admin: 09/11/21 18:09 Dose: 1 tab Promethazine HCl (Promethazine 25 Mg Tab) 25 mg PO Q6H PRN PRN Reason: Nausea And Vomiting - Vital Signs Vital signs: Vital Signs Pulse Ox 98 09/10/21 19:30 Temp Pulse Resp BP Pulse Ox 98.1 F 86 18 98/60 99 09/12/21 08:09 09/12/21 13:22 09/12/21 08:09 09/12/21 13:21 09/12/21 13:22 Results Result Diagrams: 09/12/21 10:44 09/12/21 10:44 Abnormal lab results 09/12/21 09/12/21 Range/Units 10:44 10:44 WBC 11.3 H (4.5-11.0) K/mm3 Lymph % (Auto) 10.0 L (13.4-35.0) % [place] % (Auto) 11.0 H (0.0-7.3) % Lymph # (Auto) 1.1 L (1.2-5.4) K/mm3 [place] # (Auto) 1.2 H (0.0-0.8) K/mm3 Seg Neutrophils % 78.1 H (40.0-70.0) % Seg Neutrophils # 8.8 H (1.8-7.7) K/mm3 Sodium 133 L (137-145) mmol/L Carbon Dioxide 20 L (22-30) mmol/L BUN 6 L (7-17) mg/dL Albumin 3.8 L (3.9-5) g/dL All other labs normal. Assessment and Plan Impression 1. Escoto IUP at 24 6/7 weeks 2. Kidney stones Bilat 3. Bilat Moderate Maternal Hydronephrosis 4. Pain Resolved Plan 1. Urology to be notified 2. Will consider discharge and FU if pain returns 3. Encouraged Hydration 4. Discussed with Dr. Mccracken
[2021-09-12 16:50] VITALS: BP 91/54
--- NOTE | 2021-09-12 16:55 | Event Note ---
Date: 09/12/21 pt was seen by urologist earlier Dr. García and pt states she has no pain and will decline ureteral stent as recommended at this time. Pt was also seen by [facility], Dr. Blackman who recommends follow up with urology in a week or return to hospital if pain resumes. Pt told she has bilateral kidney stones. Appt made by calling office of Dr García and they say, virtual visit appt closest available is 09/27/21 at 4:20pm and the pt will receive an email for link for virtual visit 2days prior and also the day of to enter the virtual room for visit. This information to be given to the patient. Pt continues to have normal movement. Will discharge pt home now.
--- NOTE | 2021-09-12 17:10 | Discharge Summary ---
Providers - Providers Date of Admission: 09/10/21 17:35 Date of discharge: 09/12/21 Attending physician: SURY MCCRACKEN 09/10/21 17:33 Consult to Physician [CONS] Routine Comment: pt is preg at 24+ weeks Consulting Provider: NIKOLAS GARCÍA Physician Instructions: Reason For Exam: stent for kidney stone with hydronephrosis 09/12/21 08:29 Consult to Physician [CONS] Urgent Comment: Consulting Provider: [facility] Physician Instructions: Reason For Exam: plac mccarthy 3.3cm, non-obstruct kid stones; pain mgt Primary care physician: SHIFT BOSS Hospitalization Reason for admission: other ( with bilateral kidney stones) Discharge diagnosis: other ( bilateral kidney stones, no more left side pain) Hospital course: pt admitted on 09/10/21 with left side abdominal pain and Left flank pain and bilateral kidney stones. Pt was given IV hydration, IV rocephin and IV pain meds with good effect, pt passed something like a stone and same sent to lab for analysis. Pt had consults done to both Urologist, Dr García who recommends ureteral stent on the left where pt had pain and also APADr. Blackman from operational intelligence analyst. Discussed at length the risks, benefits and alternatives of stent placement, most preferably now than later in 3rd trimester, however understandable that pt is asymptomatic now. Urine culture sent is negative growth and pt remained afebrile for hospital course. Pt advised to increase po hydration and also cranberry juice and closest follow up appt made with urologist, given a virtual visit. Condition at discharge: Good Disposition: 01 HOME / SELF CARE / HOMELESS - Discharge Diagnoses (1) Nephrolithiasis Status: Acute (2) Status: Acute Plan - Provider Discharge Summary Additional instructions: [] Smoking cessation referral if applicable(refer to patient education folder for contact #) [] Refer to [facility] Booklet Call your doctor immediately for: * Fever > 100.5 * Heavy vaginal bleeding ( >1 pad per hour) * Severe persistent headache * Shortness of breath * Reddened, hot, painful area to leg or breast * Drainage or odor from incision. * Keep incision clean and dry at all times and follow doctor's instructions regarding bathing/showering - Follow up plan Follow up: PRIMARY CARE, [Primary Care Provider] - 7 Days SURY MCCRACKEN MD [Staff Physician] - 7 Days
== END 2021-09-12 18:45 | disposition home or self-care (01) | DRG 781 ==
LOC: LD 12:30 → TRG 12:30 → LD 17:35
PROVIDERS: ADMIT Obstetrics & Gynecology; ATTEND Obstetrics & Gynecology
DX: O23.02 Infections of kidney in pregnancy, second trimester (principal); Z3A.24 24 weeks gestation of pregnancy; N13.6 Pyonephrosis; O60.02 Preterm labor without delivery, second trimester
CPT/HCPCS: 36415; 76770; 76815; 80053; 81001; 82365; 85025; 85027; 86850; 86900; 86901; 87086; G0378; Q0162; J0696; J2270; J2300; J2405; J7030; J7120; U0003

== ENCOUNTER 2021-12-28 17:43 | Inpatient (IN) | payer MEDICAID ==
[2021-12-28] MEDS ORDERED: fentaNYL 100 MCG/2 ML INJ IV PRN (21:59)
[2021-12-28] MEDS ORDERED: TERBUTALINE 1 MG/1 ML INJ SUB-Q PRN (21:59)
[2021-12-28] MEDS ORDERED: ACETAMINOPHEN 325 MG TAB PO PRN (21:59)
[2021-12-28] MEDS ORDERED: CARBOPROST TROMETHAMINE 250 MCG/1 ML INJ IM PRN (21:59)
[2021-12-28] MEDS ORDERED: ePHEDrine SULFATE 50 MG/1 ML INJ IV PRN (21:59)
[2021-12-28] MEDS ORDERED: BUTORPHANOL 2 MG/1 ML INJ IV PRN (21:59)
[2021-12-28] MEDS ORDERED: METHYLERGONOVINE MALEATE 0.2 MG/ML VIAL IM PRN (21:59)
[2021-12-28] MEDS ORDERED: OXYTOCIN DRIP 30 UNITS/500 ML BAG IV SCH (22:00)
[2021-12-28] MEDS ORDERED: miSOPROStol 25 MCG TAB PO SCH (22:00)
--- NOTE | 2021-12-28 22:15 | History and Physical Report ---
History of Present Illness Date of examination: 12/28/21 Date of admission: 12/28/2021 Chief complaint: Contractions History of present illness: The patient is a 21-year-old primigravida at 40-1/7 weeks gestation who presents to OB triage reporting contractions. The contractions are approximately every 7 to 10 minutes apart. The contractions are painful. There is good movement. There is no vaginal bleeding Earlier today, cervical exam was 4 cm dilated in the office. Cervix remained 4 cm dilation in OB triage. Contractions remained irregular. OB ultrasound limited was performed. Estimated weight was within the 6 percentile and amniotic fluid index was 4 cm. As such, this patient fulfilled the contemporary clinical criteria for small for gestational age fetus and oligohydramnios. In order to decrease the risk of stillbirth and the risk of delivery, induction of labor is medically indicated. The patient is admitted to labor and delivery for induction of labor. Past History Past Medical History: no pertinent history Past Surgical History: no surgical history Family/Genetic History: none Social history: no significant social history - Obstetrical History Expected Date of Delivery: 12/27/21 Actual Gestation: 40 Week(s) 1 Day(s) : 1 Para: 0 Medications and Allergies Allergies Allergy/AdvReac Type Severity Reaction Status Date / Time No Known Allergies Allergy Verified 09/10/21 12:55 Home Medications Medication Instructions Recorded Confirmed Last Taken Type No Known Home Medications [No 02/18/21 02/18/21 Unknown History Reported Home Medications] Active Meds: Active Medications Acetaminophen (Acetaminophen 325 Mg Tab) 650 mg PO Q4H PRN PRN Reason: Pain, Mild (1-3) Butorphanol Tartrate (Butorphanol 2 Mg/1 Ml Inj) 2 mg IV Q2H PRN PRN Reason: Pain, Moderate(4-6) LABOR PAIN Carboprost Tromethamine (Carboprost Tromethamine 250 Mcg/1 Ml Inj) 250 mcg IM ONCE PRN PRN Reason: Uterine Bleeding Ephedrine Sulfate (Ephedrine Sulfate 50 Mg/1 Ml Inj) 10 mg IV Q2M PRN PRN Reason: Hypotension Fentanyl (Fentanyl 100 Mcg/2 Ml Inj) 100 mcg IV Q2H PRN PRN Reason: Pain,Severe (7-10) LABOR PAIN Lactated Ringer's (Lactated Ringers) 1,000 mls @ 125 mls/hr IV DIRECT JOHNNIE Oxytocin/Sodium Chloride (Pitocin/Ns 30 Unit/500ml) 30 units in 500 mls @ 40 mls/hr IV TITR JOHNNIE; Protocol Methylergonovine Maleate (Methylergonovine Maleate 0.2 Mg/Ml Vial) 0.2 mg IM ONCE PRN PRN Reason: Uterine Bleeding Misoprostol (Misoprostol 25 Mcg Tab) 25 mcg PO Q4H JOHNNIE Stop: 12/29/21 10:01 Terbutaline Sulfate (Terbutaline 1 Mg/1 Ml Inj) 0.25 mg SUB-Q ONCE PRN PRN Reason: Hyperstimulation/Hypertonicity Review of Systems All systems: negative - Vital Signs Vital signs: Vital Signs Pulse Pulse Ox 93 H 97 12/28/21 19:02 12/28/21 19:02 Temp Pulse Resp BP Pulse Ox 85 109/68 98 12/28/21 22:07 12/28/21 21:47 12/28/21 22:07 - Physical Exam Breasts: Positive: normal Cardiovascular: Regular rate Lungs: Positive: Normal air movement Abdomen: Positive: normal appearance Genitourinary (Female): Positive: normal external genitalia, normal perenium Vulva: both: normal Vagina: Positive: normal moisture Uterus: Positive: enlarged Adnexa: both: normal Anus/Rectum: Positive: normal perianal skin Extremities: Positive: normal Deep Tendon Reflex Grade: Normal +2 - Obstetrical FHR: category 1 Cervical Dilatation: 4 Cervical Effacement Percentage: 60 station: -1 Uterine Contraction Frequency (min): 7 Uterine Contraction Pattern: Regular Results All other labs normal. Ultrasound: report reviewed (OB US Limited= SLIUP. Vertex. Anterior fundal placenta. EFW= 2932 g (6th %-ile). ADELAIDA= 4 cm.), image reviewed Assessment and Plan - Patient Problems (1) 40 weeks gestation of Current Visit: Yes Status: Acute Plan to address problem: care is up-to-date at [facility]. She is GBS negative. (2) Postmaturity , 40-42 weeks gestation Current Visit: Yes Status: Acute Plan to address problem: The patient is 40-1/7 weeks gestation today. According to data from the ARRIVE trial, induction of labor is recommended to decrease the risk of delivery (3) Oligohydramnios in arteaga in third trimester Current Visit: Yes Status: Acute Plan to address problem: Etiology is unknown. At this gestational age, induction of labor is medically indicated to decrease the risk of stillbirth. (4) SGA (small for gestational age), , affecting care of mother, antepartum Current Visit: Yes Status: Acute Plan to address problem: The estimated weight is in the 6 percentile. As such at this gestational age, induction of labor is medically indicated to decrease the risk of stillbirth. (5) Encounter for induction of labor Current Visit: Yes Status: Acute Plan to address problem: Ripen cervix further with Cytotec. AROM when possible. Start Pitocin thereafter.
--- NOTE | 2021-12-29 00:12 | Ultrasound Report ---
US OB limited INDICATION / CLINICAL INFORMATION: Contractions, Post-due date COMPARISON: OB ultrasound 09/11/2021 TECHNIQUE: Using a transcutaneous probe, multiple grayscale, color Doppler, and spectral Doppler imag es of the uterus and fetus were captured and stored. FINDINGS: Single cephalic fetus heart rate 131 bpm. Oligohydramnios, ADELAIDA 4.0 cm. Grade 1 right lateral placenta. Biparietal Diameter = 9.07 cm = 36, 5 weeks, days Head Circumference = 31.63 cm = 35, 4 weeks, days Abdominal Circumference = 34.53 cm = 38, 3 weeks, days Femur Length = 6.14 cm = 31, 6 weeks, days Average Ultrasound Age (AUA) = 35, 1 weeks, days. EDC 01/27/2022. Estimated weight = 2932 g; growth percentile 6%. IMPRESSION: 1. Single living fetus as detailed. Compared to the earliest ultrasound on record, IUGR is not exclud ed. 2. Oligohydramnios. Signer Name: Demarcus May II, MD Signed: 12/29/2021 12:08 AM Workstation Name: [id number]
[2021-12-29 00:17] LABS: Hematocrit 37.2 % (30.3-42.9); Hemoglobin 12.2 gm/dl (10.1-14.3); Mean Corpuscular HGB Conc 33 % (30-34); Mean Corpuscular Volume 95 fl (79-97); Platelet Count 191 K/mm3 (140-440); Red Cell Distribution Width 16.1 % (13.2-15.2)
[2021-12-29] MEDS: LACTATED RINGERS 1,000 ML IV SCH ×3 (07:33→15:33)
[2021-12-29] MEDS ORDERED: NALOXONE 0.4 MG/1 ML INJ IV PRN ×2 (08:30→16:30)
[2021-12-29] MEDS ORDERED: ePHEDrine SULFATE 50 MG/1 ML INJ IV PRN (08:30)
[2021-12-29] MEDS ORDERED: fentaNYL-BUPIV 2 MCG/ML-0.125% 200 MCG/100 ML BAG EPIDURAL SCH (08:30)
--- NOTE | 2021-12-29 08:55 | Anesthesia Consultation ---
Anesthesia Consult and Med Hx Date of service: 12/29/21 - Airway Anesthetic Teeth Evaluation: Poor ROM Head & Neck: Adequate Mental/Hyoid Distance: Adequate Mallampati Class: Class II Intubation Access Assessment: Probably Good - Pulmonary Exam CTA: Yes - Cardiac Exam Cardiac Exam: RRR - Pre-Operative Health Status ASA Pre-Surgery Classification: ASA2 Proposed Anesthetic Plan: Epidural - Pulmonary Hx Smoking: No Hx Asthma: No - Cardiovascular System Hx Hypertension: No - Central Nervous System Hx Seizures: No Hx Psychiatric Problems: No - Endocrine Hx Renal Disease: No Hx Hypothyroidism: No Hx Hyperthyroidism: No - Hematic Hx Anemia: No Hx Sickle Cell Disease: No - Other Systems Hx Alcohol Use: No Hx Substance Use: No
--- NOTE | 2021-12-29 08:56 | Progress Note ---
Labor Epidural - Labor Epidural Start Time: 07:43 Stop Time: 07:52 Performed by:: AMANDEEP CHILDS Procedure: Patient is requesting epidural for labor pain. H&P and labs reviewed. Procedure explained, questions answered, consent obtained. Patient placed in sitting position with monitors applied. Timeout performed immediately before start of procedure. Prep/drape in usual sterile fashion. Skin localized 3 mL 1% lidocaine at L[3]-L[4] interspace. 17-gauge Touhy epidural needle advanced to ELKE with saline at [6] cm. No blood/CSF noted via epidural needle. Epidural catheter advanced to [10] cm. Negative aspiration for blood and CSF via catheter, negative response to test dose 3 ml 1.5% lidocaine w/ Epi. Sterile dressing applied followed by tape reinforcement. Patient tolerated procedure well. No immediate complications noted.
[2021-12-29] MEDS ORDERED: AMPICILLIN/NS 2 GM/100 ML 2 GM/100 ML BAG IV SCH (09:00)
[2021-12-29] MEDS ORDERED: LIDOCAINE 2%/EPINEPHRINE 1:200,000 VIAL (20 ML) INFILTRATI ONE (11:10)
[2021-12-29] MEDS ORDERED: SODIUM CHLORIDE 0.9% IRR 1,500 ML BOTTLE IR ONE (11:15)
[2021-12-29] MEDS ORDERED: ceFAZolin/STERILE WATER 2 GM/20 ML SYRINGE IV ONE (11:15)
[2021-12-29] MEDS ORDERED: WATER FOR IRRIG STERILE 1,500 ML BOTTLE IR ONE (11:15)
[2021-12-29] MEDS ORDERED: ceFAZolin 1 GM VIAL ONE (11:25)
[2021-12-29] MEDS ORDERED: KETOROLAC 30 MG/1 ML INJ ONE (11:29)
[2021-12-29] MEDS ORDERED: ePHEDrine SULFATE 50 MG/1 ML INJ ONE (11:32)
[2021-12-29] MEDS ORDERED: GENTAMICIN/NS 80 MG/100 ML 100 ML IV ONE (11:33)
--- NOTE | 2021-12-29 12:56 | XRay Report ---
ABDOMEN 1 VIEW 12/29/2021 11:43 AM INDICATION / CLINICAL INFORMATION: no count in OR. COMPARISON: None available. FINDINGS: TUBES / LINES: None. BOWEL GAS PATTERN: No significant abnormality. FREE AIR / EXTRALUMINAL GAS: None. ADDITIONAL FINDINGS: Linear density coiled over the midline abdomen coursing along the right upper qu adrant, which is most likely external to the patient. Clinical correlation is needed. No other retain ed surgical instrument identified. IMPRESSION: 1. Linear density coiled over the midline abdomen coursing along the right upper quadrant, which is m ost likely external to the patient. Clinical correlation is needed. 2. No other retained surgical instrument identified. Signer Name: Sudeep English MD Signed: 12/29/2021 12:52 PM Workstation Name: [id number]
[2021-12-29] MEDS ORDERED: AMPICILLIN/NS 1 GM/50 ML 1 GM/50 ML BAG IV SCH (13:00)
[2021-12-29] MEDS ORDERED: BUPIVACAINE/PF (0.25%) 2.5 MG/ML 30 ML VIAL INFILTRATI ONE (13:07)
[2021-12-29] MEDS ORDERED: dexAMETHasone 20 MG/5 ML VIAL ONE (13:07)
--- NOTE | 2021-12-29 13:32 | Procedure Note ---
OB Delivery Note - Delivery Date of Delivery: 12/29/21 Surgeon: MEGHAN MCCRACKEN Estimated blood loss: other (722cc per QBL) - Section Preop diagnosis: nonreassuring FHR tracing ( bradycardia), other (failed vacuum placement with 3 pop off) Postop diagnosis: same (and repair of 1st degree perineal laceration post c/section) section procedure: primary low transverse Complications: none Narrative: Date: 12/29/21 Surgeon: Meghan Mccracken MD Preop Dx: Term IUP with category III with bradycardia in the 70's, vacuum placed with 3 raymond offs Postop Dx: same and 1st degree perineal laceration Procedure : Emergent Low Transverse section, and then repair of perineal laceration post delivery Anesthesia: Epidural Intake: 1600cc Output: 400cc, clear after baby delivered EBL: 722cc After the risks, benefits and alternatives of procedure discussed, patient signed consents and was taken to the operating room. Pt was given additional dosing with current epidural anesthesia. After same was adequate, patient was prepped and draped in the usual sterile fashion. Gonzalez catheter already in place and draining mild blood tinged urine. Pt was given prophylactic antibiotic per protocol and betadine splashed on the skin and pt agreed to have emergent procedure. Pfannenstiel skin incision was made and taken sharply to the fascia and manual separation of fascia by myself and blunt entry into the peritoneal cavity. Bladder flap was created using scalpel and bladder blade placed. Lower uterine segment then entered transversely and amniotic sac entered using scalpel and uterine incision extended manually. Infant delivered from deep in the pelvis, infant was bulb suctioned, cord clamped and baby handed to waiting pediatricians. Placenta then delivered completely and uterine cavity cleared of all clots and debri. The uterus was exteriorized and closed in 2 layers using 0-monocryl suture in a running locked fashion and then an additional layer of imbrication suture. Excellent hemostasis noted. Copious irrigation done to pelvis and bladder peritoneum closed. The gutters were cleared of clots and debri and anterior peritoneum closed using 3-0 vicryl suture in a running fashion and rectus muscle reapproximated using 0- vicryl suture in a running fashion. Rectus fascia closed with 0-vicryl suture and subcutaneous tissue copiously irrigated with normal saline and re- approximated using 3-0 vicryl suture in a running fashion. Excellent hemostasis remains. The skin was closed with 4-0 monocryl suture and steristrips placed with pressure dressing. Sponge, lap, instrument and needle counts x2 were normal. Abd/Pelvis Xray done and no instruments or sponge or foreign body seen. Gonzalez cath on the bed inadvertly seen on the Xray picture. Pt vagina was inspected post delivery and 1st perineal laceration repaired with figure of 8 suture x1 using 3-0 vicryl Patient tolerated the procedure well and was taken to recovery room stable. Pt to receive broad spectrum antibiotics x3 doses due to limited prep, no shaving and possible contamination during emergent procedure. Findings: Viable male , APGARS 8/9 and weight 3180g. Normal uterus, tubes and ovaries. - A at 1 minute: 8 at 5 minutes: 9 (wt 3180g) Gender: Male
--- NOTE | 2021-12-29 13:50 | Anesthesia Day of Surgery ---
Anesthesia Day of Surgery - Day of Surgery Patient Examined: Yes Patient H&P Reviewed: Yes Patient is NPO: Yes
--- NOTE | 2021-12-29 13:51 | Progress Note ---
Regional Anesthesia Block - Regional Anesthesia Block Start Time: 13:36 Stop Time: 13:39 Performed By:: AMANDEEP CHILDS Procedure: Patient consented for TAP block for post surgical pain management. Patient identified, monitors placed, and time out performed. TAP identified bilaterally via ultrasound. Skin prepped bilaterally with [chlorhexidine] and [22g stimuplex] needle advanced to the TAP. [Marcaine 0.25% 35ml] injected under ultrasound guidance on the [left] side. [Marcaine 0.25% 35ml] injected under ultrasound guidance on the [right] side. Negative aspiration every 5mL, No change in heart rate or rhythm. Patient tolerated the procedure well. No apparent complications seen.
[2021-12-29] MEDS ORDERED: LANOLIN/ZINC/DIMETHICONE (LANSINOH) 7 GM TP PRN (15:17)
[2021-12-29] MEDS ORDERED: IBUPROFEN 600 MG TAB PO PRN (16:00)
[2021-12-29] MEDS ORDERED: WITCH HAZEL/ GLYCERIN PAD TP PRN (16:00)
[2021-12-29] MEDS ORDERED: OXYTOCIN DRIP 30 UNITS/500 ML BAG IV SCH (16:00)
[2021-12-29] MEDS ORDERED: MORPHINE 4 MG/1 ML INJ IV PRN (16:30)
[2021-12-29] MEDS ORDERED: ONDANSETRON 4 MG/2 ML INJ IV PRN (16:30)
[2021-12-29] MEDS ORDERED: SIMETHICONE 80 MG CHEW TAB PO PRN (17:00)
[2021-12-29] MEDS: AMPICILLIN/NS 2 GM/100 ML 2 GM/100 ML BAG IV SCH (18:24)
[2021-12-29] MEDS: oxyCODONE /ACETAMINOPHEN 5-325MG TAB PO PRN (18:26)
--- NOTE | 2021-12-29 19:14 | Post Anesthesia Evaluation ---
- Post Anesthesia Evaluation Patient Participated: Yes Airway Patent: Yes Stable Respiratory Function: Yes Nausea/Vomiting: No Temp > 96.8F: Yes Pain Manageable: Yes Adequeate Hydration: Yes Anesthesia Complications: No Block Receding Appropriately: Yes Patient on Ventilator: No
[2021-12-29] MEDS ORDERED: SENNOSIDES 8.6 MG TAB PO PRN (22:00)
[2021-12-29] MEDS ORDERED: HYDROCORTISONE 25 MG RECTAL SUPP PR PRN (22:00)
[2021-12-29] MEDS: GENTAMICIN/NS 100 MG/100 ML 100 MG/100 ML BAG IV SCH (23:32)
[2021-12-30] MEDS: oxyCODONE /ACETAMINOPHEN 5-325MG TAB PO PRN ×3 (00:10→21:08)
[2021-12-30] MEDS: AMPICILLIN/NS 2 GM/100 ML 2 GM/100 ML BAG IV SCH ×5 (01:33→20:24)
[2021-12-30] MEDS: GENTAMICIN/NS 100 MG/100 ML 100 MG/100 ML BAG IV SCH ×3 (08:09→23:59)
[2021-12-30] MEDS: FERROUS SULFATE 325 MG TAB PO SCH (09:21)
[2021-12-30] MEDS: PRENATAL VIT27-FE FUMARATE-FOLIC ACID VIT TAB PO SCH (09:21)
--- NOTE | 2021-12-30 09:22 | Progress Note ---
Assessment and Plan POD#1 C/S doing fair, with emergent procedure and pain not well controlled 1. Pt encouraged to ambulate, will give simethecone and also IM toradol for better pain control 2. Complete 24hr abx course with inadequate prep for emergent c/s for NRFHR 3. Routine care Subjective Date of service: 12/30/21 Principal diagnosis: POD#1 C/S Interval history: pt has passed no flatus, denies chest pain or shortness of breath or fatigue. pt has voiding without difficulty. Vag bleed less than a period. pt is bottle feeding. Objective - Constitutional Vitals: Vital Signs - 12hr 12/30/21 12/30/21 12/30/21 00:08 00:10 01:10 Temperature 98.9 F Pulse Rate 87 Respiratory 18 18 Rate Blood Pressure 114/64 O2 Sat by Pulse 97 Oximetry O2 Sat by Pulse 98 98 Oximetry [ Bilateral] 12/30/21 12/30/21 04:22 08:17 Temperature 98.2 F Pulse Rate 78 Respiratory 18 19 Rate Blood Pressure 114/42 O2 Sat by Pulse 98 Oximetry O2 Sat by Pulse Oximetry [ Bilateral] General appearance: Present: no acute distress - Neck Neck: normal ROM - Respiratory Respiratory effort: normal - Breasts Breasts: deferred - Cardiovascular Rhythm: regular Extremities: No edema - Gastrointestinal General gastrointestinal: Present: soft, non-tender, other (Incision C/D/I with dressing intact) - Genitourinary Female genitourinary: other (Fundus firm, mild tenderness 1cm below umbilicus) - Neurologic Neurologic: moves all extremities - Psychiatric Psychiatric: cooperative - Labs CBC & Chem 7: 12/28/21 22:57 Medications & Allergies - Medications Allergies/Adverse Reactions: Allergies No Known Allergies Allergy (Verified 09/10/21 12:55) Home Medications: Home Medications Medication Instructions Recorded Confirmed Last Taken Type Ibuprofen [Motrin] 800 mg PO Q8HR PRN 21 Days #30 12/29/21 Unknown Rx tablet Tablet 1 tab PO DAILY 12/29/21 12/29/21 12/28/21 History oxyCODONE /ACETAMINOPHEN [Percocet 1 tab PO Q4HR PRN 21 Days #30 tab 12/29/21 Unknown Rx 5/325] Active Medications: Generic Name Dose Route Start Last Admin Trade Name Freq PRN Reason Stop Dose Admin Acetaminophen 650 mg 12/28/21 21:59 Acetaminophen 325 Mg Tab PO Q4H PRN Pain, Mild (1-3) Carboprost Tromethamine 250 mcg 12/28/21 21:59 Carboprost Tromethamine 250 Mcg/1 Ml Inj IM ONCE PRN Uterine Bleeding Ferrous Sulfate 325 mg 12/30/21 10:00 Ferrous Sulfate 325 Mg Tab PO QDAY JOHNNIE Hydrocortisone Acetate 25 mg 12/29/21 22:00 Hydrocortisone 25 Mg Rectal Supp MO BID PRN Hemorrhoids Lactated Ringer's 1,000 mls @ 125 mls/hr 12/28/21 22:00 12/29/21 15:33 Lactated Ringers IV 125 mls/hr DIRECT JOHNNIE Administration Oxytocin/Sodium Chloride 30 units in 500 mls @ 40 mls/hr 12/28/21 22:00 12/29/21 10:10 Pitocin/Ns 30 Unit/500ml IV 2 ml/hr TITR JOHNNIE 2 mls/hr Administration Protocol Ampicillin Sodium 2 gm in 100 mls @ 100 mls/hr 12/29/21 14:00 12/30/21 01:33 Ampicillin/Ns 2 Gm/100 Ml IV 12/31/21 08:59 100 mls/hr Q6H JOHNNIE Administration Protocol Gentamicin Sulfate/Sodium Chloride 100 mg in 100 mls @ 200 mls/hr 12/29/21 18:00 12/30/21 08:09 Gentamicin/Ns 100 Mg/100 Ml IV 12/30/21 18:29 200 mls/hr Q8H JOHNNIE Administration Clindamycin HCl 900 mg in 50 mls @ 100 mls/hr 12/29/21 14:00 12/30/21 00:19 Cleocin 900 Mg/50 Ml IV 12/30/21 14:29 Not Given Q8H JOHNNIE Protocol Oxytocin/Sodium Chloride 30 units in 500 mls @ 40 mls/hr 12/29/21 16:00 Pitocin/Ns 30 Unit/500ml IV TITR JOHNNIE Protocol Ibuprofen 600 mg 12/29/21 16:00 Ibuprofen 600 Mg Tab PO Q6H PRN Pain, Mild (1-3) Ibuprofen 800 mg 12/29/21 17:00 Ibuprofen 800 Mg Tab PO Q6H PRN Pain, Moderate (4-6) Magnesium Hydroxide 30 ml 12/29/21 22:00 Magnesium Hydroxide (Mom) Oral Liqd Udc PO QHS PRN Constip Unrelieved By Senna Methylergonovine Maleate 0.2 mg 12/28/21 21:59 Methylergonovine Maleate 0.2 Mg/Ml Vial IM ONCE PRN Uterine Bleeding Morphine Sulfate 4 mg 12/29/21 16:30 12/29/21 16:27 Morphine 4 Mg/1 Ml Inj IV 4 mg Q4H PRN Administration Pain , Severe (7-10) Multi-Ingredient Ointment 1 applic 12/29/21 15:17 Lanolin/Zinc/Dimethicone (Lansinoh) 7 Gm TP PRN PRN dryness/cracking Multivitamins/Iron/Calcium 1 each 12/30/21 10:00 [id number] Fumarate-Folic Acid Vit Tab PO QDAY JOHNNIE Naloxone HCl 0.1 mg 12/29/21 16:30 Naloxone 0.4 Mg/1 Ml Inj IV Q2MIN PRN Res Rate </= 8 or 02 SAT < 92% Ondansetron HCl 4 mg 12/29/21 16:30 Ondansetron 4 Mg/2 Ml Inj IV Q8H PRN Nausea And Vomiting Oxycodone/Acetaminophen 2 tab 12/29/21 17:00 12/30/21 04:22 Oxycodone /Acetaminophen 5-325mg Tab PO 2 tab Q4H PRN Administration Pain, Moderate (4-6) Senna 17.2 mg 12/29/21 22:00 Sennosides 8.6 Mg Tab PO QHS PRN Constipation Simethicone 80 mg 12/29/21 17:00 Simethicone 80 Mg Chew Tab PO Q6H PRN Gas pain Sodium Chloride 10 ml 12/29/21 15:17 Sodium Chloride 0.9% 10 Ml Flush Syringe IV 01/10/22 15:16 PRN NR Witch Sintia/Glycerin 1 each 12/29/21 16:00 Witch Sintia/ Glycerin Pad TP PRN PRN Hemorrhoids/cleansing/soothing
[2021-12-30] MEDS ORDERED: KETOROLAC 60 MG/2 ML INJ IM ONE (09:33)
[2021-12-30] MEDS: METOCLOPRAMIDE 10 MG/2 ML INJ IV SCH ×3 (10:21→21:10)
[2021-12-30] MEDS: LACTATED RINGERS 1,000 ML IV SCH ×2 (10:22→23:16)
[2021-12-30] MEDS ORDERED: KETOROLAC 30 MG/1 ML INJ IM ONE (11:00)
[2021-12-30] MEDS: IBUPROFEN 800 MG TAB PO PRN (14:02)
[2021-12-30 16:14] LABS: Basophils % (Auto) 0.4 % (0.0-1.8); Eosinophils % (Auto) 0.1 % (0.0-4.3); Hematocrit 30.3 % (30.3-42.9); Hemoglobin 9.9 gm/dl (10.1-14.3); Lymphocytes # (Auto) 1.6 K/mm3 (1.2-5.4); Lymphocytes % (Auto) 12.4 % (13.4-35.0); Mean Corpuscular HGB Conc 33 % (30-34); Mean Corpuscular Volume 95 fl (79-97); Monocytes # (Auto) 1.4 K/mm3 (0.0-0.8); Monocytes % (Auto) 11.4 % (0.0-7.3); Platelet Count 179 K/mm3 (140-440); Red Blood Count 3.18 M/mm3 (3.65-5.03); Red Cell Distribution Width 16.1 % (13.2-15.2)
[2021-12-31] MEDS: AMPICILLIN/NS 2 GM/100 ML 2 GM/100 ML BAG IV SCH ×2 (03:03→09:15)
[2021-12-31] MEDS: METOCLOPRAMIDE 10 MG/2 ML INJ IV SCH ×4 (03:10→22:59)
[2021-12-31] MEDS: MAGNESIUM HYDROXIDE (MOM) ORAL LIQD UDC PO PRN (03:10)
[2021-12-31] MEDS ORDERED: TETANUS,DIPH,PERTUSS(ACELL) VACCINE 0.5 ML SYRINGE IM ONE (06:00)
[2021-12-31] MEDS: oxyCODONE /ACETAMINOPHEN 5-325MG TAB PO PRN (06:18)
--- NOTE | 2021-12-31 06:28 | Progress Note ---
Assessment and Plan POD#2 c/s doing fair 1. needs to ambulate more 2. May have dulcolax per rectum for BM if desired 3. Routine post op care and dressing removed today Subjective Date of service: 12/31/21 Principal diagnosis: POD#2 C/S Interval history: pt admits to passing flatus. Pt states she is ambulating in the room. Pt states pt relieved with percocet med. Denies N/V. Pt is bonding with baby well. Pt is voiding without difficulty Objective - Constitutional Vitals: Vital Signs - 12hr 12/30/21 12/30/21 12/30/21 20:00 21:08 22:00 Temperature Pulse Rate Respiratory 18 Rate Blood Pressure [Left] O2 Sat by Pulse Oximetry O2 Sat by Pulse 100 98 98 Oximetry [ Bilateral] 12/31/21 01:04 Temperature 98.1 F Pulse Rate 66 Respiratory 18 Rate Blood Pressure 98/57 [Left] O2 Sat by Pulse 99 Oximetry O2 Sat by Pulse Oximetry [ Bilateral] General appearance: Present: no acute distress - Neck Neck: normal ROM - Respiratory Respiratory effort: normal - Breasts Breasts: deferred - Cardiovascular Rhythm: regular Extremities: No edema - Gastrointestinal General gastrointestinal: Present: soft, hypoactive bowel sounds (mild distension), other (Incision C/D/I with steristrips) - Genitourinary Female genitourinary: other (fundus firm, 2cm below umbilicus and non-tender; Lochia small) - Integumentary Integumentary: warm, dry - Neurologic Neurologic: moves all extremities - Psychiatric Psychiatric: cooperative - Labs CBC & Chem 7: 12/30/21 14:58 Labs: Abnormal lab results 12/30/21 Range/Units 14:58 WBC 12.7 H (4.5-11.0) K/mm3 RBC 3.18 L (3.65-5.03) M/mm3 Hgb 9.9 L (10.1-14.3) gm/dl RDW 16.1 H (13.2-15.2) % Lymph % (Auto) 12.4 L (13.4-35.0) % [place] % (Auto) 11.4 H (0.0-7.3) % [place] # (Auto) 1.4 H (0.0-0.8) K/mm3 Seg Neutrophils % 75.7 H (40.0-70.0) % Seg Neutrophils # 9.6 H (1.8-7.7) K/mm3 Medications & Allergies - Medications Allergies/Adverse Reactions: Allergies No Known Allergies Allergy (Verified 12/31/21 02:39) Home Medications: Home Medications Medication Instructions Recorded Confirmed Last Taken Type Ibuprofen [Motrin] 800 mg PO Q8HR PRN 21 Days #30 12/29/21 Unknown Rx tablet Tablet 1 tab PO DAILY 12/29/21 12/29/21 12/28/21 History oxyCODONE /ACETAMINOPHEN [Percocet 1 tab PO Q4HR PRN 21 Days #30 tab 12/29/21 Unknown Rx 5/325] Active Medications: Generic Name Dose Route Start Last Admin Trade Name Freq PRN Reason Stop Dose Admin Acetaminophen 650 mg 12/28/21 21:59 Acetaminophen 325 Mg Tab PO Q4H PRN Pain, Mild (1-3) Carboprost Tromethamine 250 mcg 12/28/21 21:59 Carboprost Tromethamine 250 Mcg/1 Ml Inj IM ONCE PRN Uterine Bleeding Ferrous Sulfate 325 mg 12/30/21 10:00 12/30/21 09:21 Ferrous Sulfate 325 Mg Tab PO 325 mg QDAY JOHNNIE Administration Hydrocortisone Acetate 25 mg 12/29/21 22:00 Hydrocortisone 25 Mg Rectal Supp MT BID PRN Hemorrhoids Lactated Ringer's 1,000 mls @ 125 mls/hr 12/28/21 22:00 12/30/21 23:16 Lactated Ringers IV 125 mls/hr DIRECT JOHNNIE Administration Oxytocin/Sodium Chloride 30 units in 500 mls @ 40 mls/hr 12/28/21 22:00 12/29/21 10:10 Pitocin/Ns 30 Unit/500ml IV 2 ml/hr TITR JOHNNIE 2 mls/hr Administration Protocol Ampicillin Sodium 2 gm in 100 mls @ 100 mls/hr 12/29/21 14:00 12/31/21 03:03 Ampicillin/Ns 2 Gm/100 Ml IV 12/31/21 08:59 100 mls/hr Q6H JOHNNIE Administration Protocol Oxytocin/Sodium Chloride 30 units in 500 mls @ 40 mls/hr 12/29/21 16:00 Pitocin/Ns 30 Unit/500ml IV TITR JOHNNIE Protocol Ibuprofen 600 mg 12/29/21 16:00 Ibuprofen 600 Mg Tab PO Q6H PRN Pain, Mild (1-3) Ibuprofen 800 mg 12/29/21 17:00 12/30/21 14:02 Ibuprofen 800 Mg Tab PO 800 mg Q6H PRN Administration Pain, Moderate (4-6) Magnesium Hydroxide 30 ml 12/29/21 22:00 12/31/21 03:10 Magnesium Hydroxide (Mom) Oral Liqd Udc PO 30 ml QHS PRN Administration Constip Unrelieved By Senna Methylergonovine Maleate 0.2 mg 12/28/21 21:59 Methylergonovine Maleate 0.2 Mg/Ml Vial IM ONCE PRN Uterine Bleeding Metoclopramide HCl 10 mg 12/30/21 10:00 12/31/21 03:10 Metoclopramide 10 Mg/2 Ml Inj IV 01/03/22 09:59 10 mg Q6H JOHNNIE Administration Morphine Sulfate 4 mg 12/29/21 16:30 12/29/21 16:27 Morphine 4 Mg/1 Ml Inj IV 4 mg Q4H PRN Administration Pain , Severe (7-10) Multi-Ingredient Ointment 1 applic 12/29/21 15:17 Lanolin/Zinc/Dimethicone (Lansinoh) 7 Gm TP PRN PRN dryness/cracking Multivitamins/Iron/Calcium 1 each 12/30/21 10:00 12/30/21 09:21 [id number] Fumarate-Folic Acid Vit Tab PO 1 each QDAY JOHNNIE Administration Naloxone HCl 0.1 mg 12/29/21 16:30 Naloxone 0.4 Mg/1 Ml Inj IV Q2MIN PRN Res Rate </= 8 or 02 SAT < 92% Ondansetron HCl 4 mg 12/29/21 16:30 Ondansetron 4 Mg/2 Ml Inj IV Q8H PRN Nausea And Vomiting Oxycodone/Acetaminophen 2 tab 12/29/21 17:00 12/30/21 21:08 Oxycodone /Acetaminophen 5-325mg Tab PO 2 tab Q4H PRN Administration Pain, Moderate (4-6) Senna 17.2 mg 12/29/21 22:00 Sennosides 8.6 Mg Tab PO QHS PRN Constipation Simethicone 80 mg 12/29/21 17:00 12/30/21 16:44 Simethicone 80 Mg Chew Tab PO 80 mg Q6H PRN Administration Gas pain Sodium Chloride 10 ml 12/29/21 15:17 Sodium Chloride 0.9% 10 Ml Flush Syringe IV 01/10/22 15:16 PRN NR Witch Sintia/Glycerin 1 each 12/29/21 16:00 Witch Sintia/ Glycerin Pad TP PRN PRN Hemorrhoids/cleansing/soothing
[2021-12-31] MEDS: PRENATAL VIT27-FE FUMARATE-FOLIC ACID VIT TAB PO SCH (09:15)
[2021-12-31] MEDS: FERROUS SULFATE 325 MG TAB PO SCH (09:15)
[2021-12-31] MEDS: LACTATED RINGERS 1,000 ML IV SCH (14:34)
[2021-12-31] MEDS: IBUPROFEN 800 MG TAB PO PRN (19:16)
[2022-01-01] MEDS: MAGNESIUM HYDROXIDE (MOM) ORAL LIQD UDC PO PRN (02:54)
[2022-01-01] MEDS: METOCLOPRAMIDE 10 MG/2 ML INJ IV SCH (04:48)
--- NOTE | 2022-01-01 10:07 | Progress Note ---
Assessment and Plan A: POD #3 Asymptomatic Anemia P: Follow Routine PostOp Orders Continue PO FeSO4 1XD Depo Provera 150mg IM prior to discharge D/C Home today RTO in One Week Subjective - Subjective Date of service: 01/01/22 Principal diagnosis: POD#2 C/S Patient reports: appetite normal, voiding normally, pain well controlled, flatus, ambulating normally [place]: doing well, bottle feeding (and ) Objective - Vital Signs Latest vital signs: Vital Signs Temp Pulse Resp BP Pulse Ox Pulse Ox 01/01/22 08:05 98.3 F 87 18 93/57 97 01/01/22 08:00 98 01/01/22 00:50 97.3 F L 69 20 117/75 98 12/31/21 19:30 98 12/31/21 15:26 98 12/31/21 15:12 98.5 F 71 20 109/62 100 Intake and Output 12/31/21 01/01/22 01/01/22 22:59 06:59 14:59 Intake Total 480 120 Balance 480 120 Intake: Oral 240 Intake, Free Water 240 120 Other: Total, Intake Amount 240 # Voids Void 1 1 - Exam Breasts: Present: normal Cardiovascular: Present: Regular rate Lungs: Present: Clear to auscultation, Normal air movement Abdomen: Present: normal appearance, soft, normal bowel sounds Uterus: Present: normal, firm, fundal height below umbilicus Extremities: Present: normal Incision: Present: normal, dry, intact
--- NOTE | 2022-01-01 10:09 | Discharge Summary ---
Providers - Providers Date of Admission: 12/28/21 21:59 Date of discharge: 01/01/22 Attending physician: SURY MCCRACKEN Primary care physician: SURY MCCRACKEN Hospitalization Reason for admission: other (Early Labor) Delivery: Procedure: primary low transverse Episiotomy: none Laceration: 1st degree Incision: normal, dry, intact Other procedures: none complications: none Discharge diagnosis: IUP at term delivered [place] baby: male Condition at discharge: Good Disposition: 01 HOME / SELF CARE / HOMELESS Plan - Discharge Medications Prescriptions: Ibuprofen [Motrin] 800 mg PO Q8HR PRN 21 Days #30 tablet PRN Reason: Pain, Moderate (4-6) oxyCODONE /ACETAMINOPHEN [Percocet 5/325] 1 tab PO Q4HR PRN 21 Days #30 tab PRN Reason: Pain , Severe (7-10) - Provider Discharge Summary Activity: routine, no sex for 6 weeks, no heavy lifting 4 weeks, no strenuous exercise Diet: routine Instructions: routine Additional instructions: [] Smoking cessation referral if applicable(refer to patient education folder for contact #) [] Refer to [facility]'s [facility] Booklet Call your doctor immediately for: * Fever > 100.5 * Heavy vaginal bleeding ( >1 pad per hour) * Severe persistent headache * Shortness of breath * Reddened, hot, painful area to leg or breast * Drainage or odor from incision. * Keep incision clean and dry at all times and follow doctor's instructions regarding bathing/showering - Follow up plan Follow up: SURY MCCRACKEN MD [Primary Care Provider] - 7 Days
[2022-01-01] MEDS ORDERED: medroxyPROGESTERone ACETATE 150 MG/ML SYRINGE IM SCH (11:00)
[2022-01-01] MEDS: PRENATAL VIT27-FE FUMARATE-FOLIC ACID VIT TAB PO SCH (11:49)
[2022-01-01] MEDS: FERROUS SULFATE 325 MG TAB PO SCH (11:50)
[2022-01-01 14:16] VITALS: BP 94/62
== END 2022-01-01 14:00 | disposition home or self-care (01) | DRG 765 ==
LOC: TRG 17:43 → APU 17:44 → TRG 17:44 → LD 21:59 → APU 12-29 03:51 → LD 12-29 03:51 → APU 12-29 11:12 → OB 12-29 15:28
PROVIDERS: ADMIT Obstetrics & Gynecology; ATTEND Obstetrics & Gynecology
PROC: 10D00Z1 Extraction of Products of Conception, Low, Open Approach (ICD-10-PCS; principal; 2021-12-29)
PROC: 3E0T3BZ Introduction of Anesthetic Agent into Peripheral Nerves and Plexi, Percutaneous Approach (ICD-10-PCS; 2021-12-29)
PROC: 0HQ9XZZ Repair Perineum Skin, External Approach (ICD-10-PCS; 2021-12-29)
PROC: 3E0234Z Introduction of Serum, Toxoid and Vaccine into Muscle, Percutaneous Approach (ICD-10-PCS; 2021-12-31)
DX: O76 Abnormality in fetal heart rate and rhythm complicating labor and delivery (principal); O41.03X0 Oligohydramnios, third trimester, not applicable or unspecified; O48.0 Post-term pregnancy; Z20.822 Contact with and (suspected) exposure to COVID-19; Z23 Encounter for immunization; O36.5930 Maternal care for other known or suspected poor fetal growth, third trimester, not applicable or unspecified; Z3A.40 40 weeks gestation of pregnancy; O90.81 Anemia of the puerperium; Z37.0 Single live birth; O70.0 First degree perineal laceration during delivery
CPT/HCPCS: 36415; 74018; 76815; 76816; 85025; 85027; 86850; 86900; 86901; 88305; 88307; 90471; 90715; G0378; J3490; J7502; J0290; J0595; J0690; J1050; J1100; J1580; J1885; J2270; J2590; J2765; J3105; J7120; U0003